=== PATIENT | female | born 1995 | race Caucasian/White ===

== ENCOUNTER 2023-09-18 07:35 | Outpatient (CLI) | payer OTHER | END 2023-09-18 07:36 | disposition home or self-care (01) | LOC: BICCT 07:35 | PROVIDERS: ATTEND Internal Medicine | DX: R10.12 Left upper quadrant pain (principal); R19.4 Change in bowel habit | CPT/HCPCS: 74177 ==

== ENCOUNTER 2025-06-08 13:56 | Outpatient (CLI) | payer BC | END 2025-06-08 13:57 | disposition home or self-care (01) | LOC: SCSMRI 13:56 | PROVIDERS: ATTEND Psychiatry & Neurology Neurology | DX: M51.16 Intervertebral disc disorders with radiculopathy, lumbar region (principal); M51.17 Intervertebral disc disorders with radiculopathy, lumbosacral region; M47.22 Other spondylosis with radiculopathy, cervical region | CPT/HCPCS: 72141; 72148 ==